=== PATIENT | male | born 1990 | race Caucasian/White ===

== ENCOUNTER 2016-12-18 03:55 | Emergency (ER) | payer SELFPAY ==
[~2016-12-18] VITALS: Ht 185.4 cm; Wt 61.0 kg
[~2016-12-18 03:55] MED LIST: CLIN150 PO; IBUP600T26 PO; TRAM50 PO
[2016-12-18 03:58] VITALS: BP 140/87; PULSE 84; RESP 16; TEMP 97.8; O2SAT 96
[2016-12-18] MEDS ORDERED: AMOX500C PO (09:17)
[2016-12-18] MEDS ORDERED: IBUP800T23 PO (09:17)
[2016-12-18] MEDS ORDERED: PERI0.126 SWISH-SPIT (09:17)
== END 2016-12-18 04:30 | disposition left against medical advice (07) ==
LOC: NED 03:55
DX: K08.89 Other specified disorders of teeth and supporting structures (principal)
CPT/HCPCS: 99281

== ENCOUNTER 2016-12-18 08:54 | Emergency (ER) | payer SELFPAY ==
[~2016-12-18] VITALS: Ht 185.4 cm; Wt 61.5 kg
[2016-12-18 08:56] VITALS: BP 139/79; PULSE 88; RESP 20; TEMP 98; O2SAT 98
[2016-12-18] MEDS ORDERED: AMOX500C PO (09:17)
[2016-12-18] MEDS ORDERED: PERI0.126 SWISH-SPIT (09:17)
[2016-12-18] MEDS ORDERED: IBUP800T23 PO (09:17)
--- NOTE | 2016-12-18 09:17 | PD ---
HPI Chief Complaint: Oral / Dental Pain or Problem Time Seen by Provider: 09:16 Travel History International Travel<30 days: No Contact w/Intl Traveler<30days: No Traveled to known affect area: No History of Present Illness HPI 26-year-old male presents to the emergency Department with complaint of right lower dental pain that started this morning. He says he knows he has a dental abscess and is requesting antibiotics. Denies facial edema or erythema. Denies fever, chills, nausea, vomiting. Has not taken any medications to alleviate his symptoms. Has applied Orajel to the tooth with minimal amount of relief. Allergies to morphine. Has no other medical complaints. No other modifying factors or associated signs and symptoms. PFSH Past Medical History Diminished Hearing: No Musculoskeletal: Yes (FEMUR FRACTURE LEFT) Immunizations Current: Yes Social History Alcohol Use: Yes (DAILY) Tobacco Use: Yes (08/29 PPD) Substance Use: No Allergies-Medications (Allergen,Severity, Reaction): Coded Allergies: Morphine (Verified Allergy, Unknown, 12/18/16) Reported Meds & Prescriptions Reported Meds & Active Scripts Active Peridex Liq (Chlorhexidine Gluconate (Mouth) Liq) 0.12% Soln 15 Ml SWISH-SPIT BID 10 Days Amoxicillin 500 Mg Cap 500 Mg PO BID 10 Days Ibuprofen 800 Mg Tab 800 Mg PO Q6HR PRN Review of Systems Except as stated in HPI: all other systems reviewed are Neg Physical Exam Narrative GENERAL: Well-nourished, well-developed male patient, in no acute distress; afebrile, nontoxic-appearing SKIN: Warm and dry. HEAD: Atraumatic. Normocephalic. No facial edema, erythema, tenderness on palpation. No lymphadenopathy. EYES: Pupils equal and round. No scleral icterus. No injection or drainage. ENT: Mucosa pink and moist. Airway patent. MOUTH: Mucous membranes moist, no lesions, tongue and gums appear normal. Poor dentition throughout. Right lower first molar is with large dental caries and decay; with tenderness on palpation. Surrounding gingiva is without erythema, edema, drainage. No obvious abscess. NECK: Trachea midline. No lymphadenopathy. CARDIOVASCULAR: Regular rate. RESPIRATORY: No accessory muscle use. GASTROINTESTINAL: Flat. MUSCULOSKELETAL: No obvious deformities. No clubbing. No cyanosis. No edema. NEUROLOGICAL: Awake and alert. Oriented 3. No obvious cranial nerve deficits. Motor grossly within normal limits. Normal speech. PSYCHIATRIC: Appropriate mood and affect; insight and judgment normal. Data Data Last Documented VS Vital Signs Date Time Temp Pulse Resp B/P Pulse Ox O2 Delivery O2 Flow Rate FiO2 12/18/16 08:56 98.0 88 20 139/79 98 Room Air MDM Medical Decision Making Medical Screen Exam Complete: Yes Emergency Medical Condition: Yes Medical Record Reviewed: Yes Differential Diagnosis Infected dental caries, dentalgia, dental abscess Narrative Course 26-year-old male with right lower dentalgia to the first molar. Poor dentition throughout. To this with significant decay. Patient is afebrile and nontoxic- appearing. He denies fever, chills, nausea, vomiting. No obvious abscess noted. No facial erythema or edema. Amoxicillin, ibuprofen, Magic mouthwash prescribed for home. Emergency dental information sheet provided. Instructed patient to follow up with dentist. Patient verbalizes understanding and agreement with treatment plan. Patient is medically cleared and stable for discharge. Discussed reasons to return to the emergency department. Instructed patient to follow up with primary care provider. Patient agrees with treatment plan. The patients vital signs are stable and the patient is stable for outpatient follow-up and treatment. Patient discharged home, stable and in no acute distress. Diagnosis Primary Impression: Dentalgia Referrals: Dentist Primary Care Physician Patient Instructions: Dental Abscess (ED), Dental Caries (ED), General Instructions Departure Forms: Tests/Procedures, Work Release Enter return to work date: Dec 18, 2016 Additional Instructions: Complete full course of antibiotics Ibuprofen as directed and as needed to reduce pain and inflammation Use Magic mouthwash rinse as directed and as needed to decrease pain Use Peridex as directed for oral hygiene Warm compresses to the affected area Follow-up with dentist Follow-up with primary care provider Return to emergency department immediately with worsening of symptoms Med/Other Pt SpecificInfo: Prescription(s) given Scripts Chlorhexidine Gluconate (Mouth) Liq (Peridex Liq)0.12% Soln15 Ml SWISH-SPIT BID 10 Days Ref 0 Prov:Lottie Proctor PUBLIC HEALTH TECHNICIAN 12/18/16 Amoxicillin 500 Mg [id number] Mg PO BID 10 Days Ref 0 Prov:Lottie ProctorP 12/18/16 Ibuprofen 800 Mg [id number] Mg PO Q6HR PRN (PAIN) #30 TAB Ref 0 Prov:Rassi,Lottie K PUBLIC HEALTH TECHNICIAN 12/18/16 Disposition: 01 DISCHARGE HOME Condition: Stable Lottie Proctor Dec 18, 2016 09:17
== END 2016-12-18 09:38 | disposition home or self-care (01) ==
LOC: NEPK 08:54
DX: K04.7 Periapical abscess without sinus (principal); F17.200 Nicotine dependence, unspecified, uncomplicated
CPT/HCPCS: 99282

== ENCOUNTER 2017-11-11 03:57 | Emergency (ER) | payer SELFPAY ==
[~2017-11-11] VITALS: Ht 185.4 cm; Wt 70.0 kg
[~2017-11-11 03:57] MED LIST changes: +AMOX500C PO; -CLIN150 PO; +IBUP1TAB7 PO; -IBUP600T26 PO; +PERI0.126 SWISH-SPIT; -TRAM50 PO
[2017-11-11 04:03] VITALS: BP 130/80; PULSE 89; RESP 15; TEMP 97.5; O2SAT 98
[2017-11-11] MEDS ORDERED: BACT800T5 PO (04:51)
--- NOTE | 2017-11-11 04:51 | PD ---
HPI Chief Complaint: Bite or Sting Time Seen by Provider: 04:12 Travel History International Travel<30 days: No Contact w/Intl Traveler<30days: No Traveled to known affect area: No History of Present Illness HPI Patient is a 26-year-old male presents emergency department for evaluation of small abscesses sporadic throughout his person. Patient denies a history of IV drug abuse. Asked several times he adamantly denied a history of IV drug abuse. Patient states over the past few days he has noticed several abscesses popped up and he thought he was getting bit by a brown recluse. His main complaint is of an abscess on his left low back. He also has one his right upper extremity and left lower extremity. Denies fever denies chest pain denies shortness of breath. Symptoms for approximately a week, gradually worsening, location and context as above PFSH Past Medical History Medical History: Denies Significant Hx Diminished Hearing: No Musculoskeletal: Yes (FEMUR FRACTURE LEFT) Immunizations Current: Yes Social History Alcohol Use: Yes (DAILY) Tobacco Use: Yes (1 /2 PPD) Substance Use: No (marijuana) Allergies-Medications (Allergen,Severity, Reaction): Coded Allergies: morphine (Unverified Allergy, Unknown, 11/11/17) Reported Meds & Prescriptions Reported Meds & Active Scripts Active Bactrim DS (Sulfamethoxazole-Trimethoprim) 800-160 Mg Tab 2 Tab PO BID 7 Days Review of Systems Except as stated in HPI: all other systems reviewed are Neg Physical Exam Narrative GENERAL: Well-nourished, well-developed patient. No obvious distress, nontoxic. SKIN: Focused skin assessment warm/dry. Multiple small nodules consistent with focal abscesses. Patient has a grape-sized abscess on his left low back over the iliac crest. Small nodule less than half centimeter in diameter in the right AC fossa, there is another small one (less than half a centimeter) on his leg. No splinter hemorrhages. HEAD: Normocephalic. EYES: No scleral icterus. No injection or drainage. NECK: Supple, trachea midline. No JVD or lymphadenopathy. CARDIOVASCULAR: Regular rate and rhythm without murmurs, gallops, or rubs. RESPIRATORY: Breath sounds equal bilaterally. No accessory muscle use. GASTROINTESTINAL: Abdomen soft, non-tender, nondistended. MUSCULOSKELETAL: No cyanosis, or edema. BACK: Nontender without obvious deformity. No CVA tenderness. Data Data Last Documented VS Orders Orders Wound Culture And Gram Stain (11/11/17 04:50) Ed Discharge Order (11/11/17 04:51) MDM Medical Decision Making Medical Screen Exam Complete: Yes Emergency Medical Condition: Yes Differential Diagnosis Abscesses, systemic illness unlikely, recluse spider bite is possible but unlikely per Narrative Course Patient room to the emergency department, multiple small nodules but a significant abscess in his left lower back, was drained by PA. Will be started on empiric antibiotics, discussed symptomatic management and return to ED criteria peer Diagnosis Primary Impression: Abscess Med/Other Pt SpecificInfo: Prescription(s) given Scripts Sulfamethoxazole-Trimethoprim (Bactrim DS) 800-160 Mg Tab 2 TAB PO BID for Infection for 7 Days, #28 TAB 0 Refills Prov: Vinod Duke MD 11/11/17 Disposition: 01 DISCHARGE HOME Condition: Stable Vinod Duke MD Nov 11, 2017 04:51
--- NOTE | 2017-11-11 04:52 | PD ---
Data Data Last Documented VS Vital Signs Date Time Temp Pulse Resp B/P (MAP) Pulse Ox O2 Delivery O2 Flow Rate FiO2 11/11/17 04:03 97.5 89 15 130/80 (97) 98 Orders Orders Wound Culture And Gram Stain (11/11/17 04:50) Ed Discharge Order (11/11/17 04:51) MDM Medical Record Reviewed: Yes Supervised Visit with KATHERINE: No Procedures Procedure Narrative INCISION AND DRAINAGE OF ABSCESS: The area was prepped and was sterilely draped. A subcutaneous wheal of 1% Xylocaine with epinephrine with a total number 6 mL was used to anesthetize the area. The area was properly anesthetized. A number 11 scalpel was used to make a 1.5-cm incision across the area of the abscess. Cultures were obtained. The abscess was drained an irrigated with normal saline. Diagnosis Primary Impression: Abscess Scripts Sulfamethoxazole-Trimethoprim (Bactrim DS) 800-160 Mg Tab 2 TAB PO BID for Infection for 7 Days, #28 TAB 0 Refills Prov: Vinod Duke MD 11/11/17 Disposition: 01 DISCHARGE HOME Condition: Stable Papo Ayala Nov 11, 2017 04:52
== END 2017-11-11 05:04 | disposition home or self-care (01) ==
LOC: NEPE 03:57
DX: L02.212 Cutaneous abscess of back [any part, except buttock and flank] (principal); B95.62 Methicillin resistant Staphylococcus aureus infection as the cause of diseases classified elsewhere; F17.200 Nicotine dependence, unspecified, uncomplicated; Z88.5 Allergy status to narcotic agent
CPT/HCPCS: 10060; 86403; 87070; 87186

== ENCOUNTER 2018-01-14 09:24 | Emergency (ER) | payer MEDICAID ==
[~2018-01-14] VITALS: Ht 185.4 cm; Wt 63.5 kg
[~2018-01-14 09:24] MED LIST changes: -AMOX500C PO; +BACT800T5 PO; -IBUP1TAB7 PO; -PERI0.126 SWISH-SPIT
[2018-01-14 09:43] VITALS: BP 116/74; PULSE 112; RESP 18; TEMP 98.8; O2SAT 98
[2018-01-14] MEDS ORDERED: SODIUM CHLOR 0.9% 1000 ML INJ 1,000 ML IV SCH (10:07)
[2018-01-14] MEDS ORDERED: SODIUM CHLORIDE 0.9% FLUSH 10 ML FLUSH IV FLUSH PRN (10:15)
[2018-01-14 10:16] VITALS: BP 126/64; PULSE 85; RESP 17; TEMP 99.3; O2SAT 98
[2018-01-14 10:57] LABS: AUTOMATED NEUTROPHIL # 6.5 TH/MM3 (1.8-7.7); BASOPHIL # 0.1 TH/MM3 (0-0.2); BASOPHIL % 0.6 % (0.0-2.0); EOSINOPHIL # 0.3 TH/MM3 (0-0.4); EOSINOPHIL % 3.2 % (0.0-4.0); HEMATOCRIT 43.8 % (39.0-51.0); HEMOGLOBIN 15.2 GM/DL (13.0-17.0); LYMPH % 13.5 % (9.0-44.0); LYMPHOCYTE # 1.2 TH/MM3 (1.0-4.8); MEAN CELL VOLUME 96.4 FL (80.0-100.0); MEAN CORPUSCULAR HEMOGLOBIN 33.5 PG (27.0-34.0); MEAN CORPUSCULAR HGB CONC 34.7 % (32.0-36.0); MEAN PLATELET VOLUME 8.4 FL (7.0-11.0); MONO % 10.3 % (0.0-8.0); MONOCYTE # 0.9 TH/MM3 (0-0.9); NEUT % 72.4 % (16.0-70.0); PLATELET COUNT 190 TH/MM3 (150-450); RED BLOOD COUNT 4.54 MIL/MM3 (4.50-5.90); RED CELL DISTRIBUTION WIDTH 13.2 % (11.6-17.2); WHITE BLOOD COUNT 8.9 TH/MM3 (4.0-11.0)
[2018-01-14 11:16] LABS: BICARBONATE 26.6 MEQ/L (21.0-32.0); CALCIUM 8.3 MG/DL (8.5-10.1); CREATININE 0.72 MG/DL (0.60-1.30)
[2018-01-14] MEDS ORDERED: BACT800T5 PO (11:19)
--- NOTE | 2018-01-14 11:19 | PD ---
HPI Chief Complaint: Cold / Flu Symptoms Time Seen by Provider: 10:00 Travel History International Travel<30 days: No Contact w/Intl Traveler<30days: No Traveled to known affect area: No History of Present Illness HPI Patient 27-year-old male presents emergency department for evaluation of body aches not feeling well and a bump at the base of his hairline on the right side. Patient states he first noted the symptoms starting about 2 days ago and symptoms of gradually worsening since then. 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 Denies any chest pain shortness of breath abdominal pain nausea or vomiting. Symptoms moderate, right neck, duration as above, context as above PFSH Past Medical History Diminished Hearing: No Musculoskeletal: Yes (FEMUR FRACTURE LEFT) Immunizations Current: Yes Social History Alcohol Use: No (DENIES) Tobacco Use: Yes (1 PPD) Substance Use: Yes (marijuana) Allergies-Medications (Allergen,Severity, Reaction): Coded Allergies: morphine (Unverified Allergy, Unknown, 01/14/18) Reported Meds & Prescriptions Reported Meds & Active Scripts Active Bactrim DS (Sulfamethoxazole-Trimethoprim) 800-160 Mg Tab 1 Tab PO BID Bactrim DS (Sulfamethoxazole-Trimethoprim) 800-160 Mg Tab 2 Tab PO BID 7 Days Review of Systems Except as stated in HPI: all other systems reviewed are Neg Physical Exam Narrative GENERAL: Well-nourished, well-developed patient. Nontoxic appearance SKIN: Focused skin assessment warm/dry. There is a small bump the base of the hairline on the right side of the posterior neck, could be consistent with an early or abscess, there is minimal redness which blends in with the surrounding skin could be some mild cellulitis is really limited in its area. There is no other rash seen on his person, he does have multiple tattoos in bilateral upper extremities and lower extremities. HEAD: Normocephalic. EYES: No scleral icterus. No injection or drainage. ENT: TMs clear bilaterally, oropharynx clear moist peer NECK: Supple, trachea midline. No JVD or lymphadenopathy. CARDIOVASCULAR: Regular rate and rhythm without murmurs, gallops, or rubs. RESPIRATORY: Breath sounds equal bilaterally. No accessory muscle use. GASTROINTESTINAL: Abdomen soft, non-tender, nondistended. MUSCULOSKELETAL: No cyanosis, or edema. BACK: Nontender without obvious deformity. No CVA tenderness. Data Data Last Documented VS Vital Signs Date Time Temp Pulse Resp B/P (MAP) Pulse Ox O2 Delivery O2 Flow Rate FiO2 01/14/18 11:34 01/14/18 10:16 98 Room Air 01/14/18 10:16 99.3 85 17 Orders Orders Basic Metabolic Panel (Bmp) (01/14/18 10:07) Complete Blood Count With Diff (01/14/18 10:07) Iv Access Insert/Monitor (01/14/18 10:07) Ecg Monitoring (01/14/18 10:07) Oximetry (01/14/18 10:07) Sodium Chlor 0.9% 1000 Ml Inj (Ns 1000 M (01/14/18 10:07) Sodium Chloride 0.9% Flush (Ns Flush) (01/14/18 10:15) Ed Discharge Order (01/14/18 11:19) Labs Laboratory Tests Test 01/14/18 10:15 White Blood Count 8.9 TH/MM3 Red Blood Count 4.54 MIL/MM3 Hemoglobin 15.2 GM/DL Hematocrit 43.8 % Mean Corpuscular Volume 96.4 FL Mean Corpuscular Hemoglobin 33.5 PG Mean Corpuscular Hemoglobin Concent 34.7 % Red Cell Distribution Width 13.2 % Platelet Count 190 TH/MM3 Mean Platelet Volume 8.4 FL Neutrophils (%) (Auto) 72.4 % Lymphocytes (%) (Auto) 13.5 % Monocytes (%) (Auto) 10.3 % Eosinophils (%) (Auto) 3.2 % Basophils (%) (Auto) 0.6 % Neutrophils # (Auto) 6.5 TH/MM3 Lymphocytes # (Auto) 1.2 TH/MM3 Monocytes # (Auto) 0.9 TH/MM3 Eosinophils # (Auto) 0.3 TH/MM3 Basophils # (Auto) 0.1 TH/MM3 CBC Comment DIFF FINAL Differential Comment Blood Urea Nitrogen 8 MG/DL Creatinine 0.72 MG/DL Random Glucose 84 MG/DL Calcium Level 8.3 MG/DL Sodium Level 140 MEQ/L Potassium Level 3.8 MEQ/L Chloride Level 106 MEQ/L Carbon Dioxide Level 26.6 MEQ/L Anion Gap 7 MEQ/L Estimat Glomerular Filtration Rate 131 ML/MIN [facility] Medical Decision Making Medical Screen Exam Complete: Yes Emergency Medical Condition: Yes Differential Diagnosis Early abscess, influenza seems unlikely given the time year, severe bacterial illness highly unlikely per Narrative Course Patient room to the emergency department, his labs are reassuring, adamantly denies any IV drug abuse now or in the past to me, he appears well in no obvious distress, at this time there is no indication for further workup his labs are reassuring. There is no indication for drainage of his neck as there is no discernible fluid collection. Discussed empiric antibiotics return to ED criteria follow-up with a primary care physician. Discussed smoking cessation as smoking leads to many adverse health outcomes. Diagnosis Primary Impression: Cellulitis Additional Instructions: Follow-up with your primary care physician or the [facility], if you notice any increasing swelling of the neck return to the ER immediately. Take her antibiotics as prescribed. Stop smoking as smoking leads to heart disease lung disease and cancer. Med/Other Pt SpecificInfo: Prescription(s) given Scripts Sulfamethoxazole-Trimethoprim (Bactrim DS) 800-160 Mg Tab 1 TAB PO BID for Infection, #14 TAB 0 Refills Prov: Vinod Duke MD 01/14/18 Disposition: 01 DISCHARGE HOME Condition: Stable Vinod Duke MD January 14, 2018 11:19
== END 2018-01-14 11:50 | disposition home or self-care (01) ==
LOC: NEPC 09:24
DX: L03.811 Cellulitis of head [any part, except face] (principal); F17.210 Nicotine dependence, cigarettes, uncomplicated; Z86.14 Personal history of Methicillin resistant Staphylococcus aureus infection
CPT/HCPCS: 80048; 85025; 96360; 99284; J7030